=== PATIENT | female | born 1970 | race Caucasian/White ===

== ENCOUNTER → 2017-09-01 | Outpatient (CLI) | payer BC ==
--- NOTE | 2017-09-02 10:40 | MM ---
Reason for exam: screening (asymptomatic). Last mammogram was performed 2 years and 5 months ago. History: Took hormonal contraceptives for 13 years. Physical Findings: A clinical breast exam by your physician is recommended on an annual basis and results should be correlated with mammographic findings. MG Screening Mammo w CAD Bilateral CC and MLO view(s) were taken. Prior study comparison: April 02, 2015, bilateral MG screening mammo w CAD. September 14, 2013, left diagnostic mammogram w/CAD. The breast tissue is heterogeneously dense. This may lower the sensitivity of mammography. Finding: There are typically benign round calcifications in both breasts. There is no discrete abnormality. ASSESSMENT: Benign, BI-RAD 2 RECOMMENDATION: Routine screening mammogram of both breasts in 1 year.
== END | disposition home or self-care (01) ==
LOC: RADMAMWWP 13:47
PROVIDERS: ATTEND Obstetrics & Gynecology
DX: Z12.31 Encounter for screening mammogram for malignant neoplasm of breast (principal)
CPT/HCPCS: 77067

== ENCOUNTER → 2019-01-17 | Outpatient (CLI) | payer BC ==
--- NOTE | 2019-01-17 17:05 | CT ---
EXAMINATION TYPE: CT abdomen pelvis w con DATE OF EXAM: 01/17/2019 COMPARISON: Abdomen 01/15/2019 from outside institution HISTORY: flank pain, fever, nausea, hematuria CT DLP: 1378 mGycm Automated exposure control for dose reduction was used. TECHNIQUE: Helical acquisition of images from the lung bases through the pelvis have been completed. CONTRAST: Performed with Oral Contrast and with IV Contrast, patient injected with 100 mL of Isovue 300. FINDINGS: Small umbilical hernia contains fat. LUNG BASES: No significant abnormality is appreciated. AORTA: No significant abnormality is appreciated. LIVER/GB: No significant abnormality is appreciated. PANCREAS: No significant abnormality is seen. SPLEEN: No significant abnormality is seen. ADRENALS: No significant abnormality is seen. KIDNEYS: There is some perinephric stranding on the left, correlate for possible urinary tract infect ion, periureteral soft tissue is also present. REPRODUCTIVE ORGANS: Possible fallopian tubal ligation clip present in the left hemipelvis. Metallic densities noted. Right-sided clip is not seen however. Correlating plain film question second metalli c density superimposed over the pelvis which is not seen on CT, correlate for jewelry overlying the p atient BOWEL: There is some areas of bowel wall thickening, difficult to exclude enteritis, colitis. Normal appendix. FREE AIR: No Free Air visible. ASCITES: None visible. PELVIC ADENOPATHY: None visualized. RETROPERITONEAL ADENOPATHY: No Retroperitoneal Adenopathy visible. URINARY BLADDER: No significant abnormality is seen. OSSEOUS STRUCTURES: No significant abnormality is seen. IMPRESSION: CORRELATE FOR PYELONEPHRITIS. Only one tubal ligation clip is identified. Discordance between CT and plain film as described, correlate. Correlate for possible enteritis, colitis.
== END | disposition home or self-care (01) ==
LOC: RADCTMAIN 13:34
PROVIDERS: ATTEND Family Medicine
DX: R10.9 Unspecified abdominal pain (principal); R31.9 Hematuria, unspecified; Z88.8 Allergy status to other drugs, medicaments and biological substances
CPT/HCPCS: 74177; Q9967

== ENCOUNTER → 2019-09-18 | Outpatient (CLI) | payer BC ==
--- NOTE | 2019-09-19 10:17 | MM ---
Reason for exam: screening (asymptomatic). Last mammogram was performed 2 years and 1 month ago. History: Took hormonal contraceptives for 13 years. Physical Findings: A clinical breast exam by your physician is recommended on an annual basis and results should be correlated with mammographic findings. MG Screening Mammo w CAD Bilateral CC and MLO view(s) were taken. Prior study comparison: September 01, 2017, bilateral MG screening mammo w CAD. April 02, 2015, bilateral MG screening mammo w CAD. The breast tissue is heterogeneously dense. This may lower the sensitivity of mammography. Finding: There are indeterminate calcifications in the outer quadrant of the right breast on CC view 3 cm from the nipple. New finding since September 01, 2017 and April 02, 2015. ASSESSMENT: Incomplete: need additional imaging evaluation, BI-RAD 0 RECOMMENDATION: Special view mammogram of the right breast. If lesion persists on supplemental views, image directed ultrasound is recommended. [facility] will attempt to contact patient to return for supplemental views and ultrasound if indicated.
== END | disposition home or self-care (01) ==
LOC: RADMAMWWP 11:44
PROVIDERS: ATTEND Obstetrics & Gynecology
DX: Z12.31 Encounter for screening mammogram for malignant neoplasm of breast (principal)
CPT/HCPCS: 77067

== ENCOUNTER → 2019-09-27 | Outpatient (CLI) | payer BC ==
--- NOTE | 2019-09-28 08:39 | MM ---
Reason for exam: additional evaluation requested from abnormal screening. Last mammogram was performed less than 1 month ago. History: Took hormonal contraceptives for 13 years. Physical Findings: Nurse Summary: 0.5cm nodule in the right breast at 10 o'clock (nurse pinky). MG 3D Work Up W/Cad RT Spot compression CC and LM view(s) were taken of the right breast. Prior study comparison: September 18, 2019, bilateral MG screening mammo w CAD. September 01, 2017, bilateral MG screening mammo w CAD. April 02, 2015, bilateral MG screening mammo w CAD. The breast tissue is heterogeneously dense. This may lower the sensitivity of mammography. Multiple areas of grouped and regional calcifications similar to 2018. The lateral anterior asymmetric density does not persist but there is a nurse palpated area near the same region. These results were verbally communicated with the patient and result sheet given to the patient on 09/27/19. ASSESSMENT: Incomplete: need additional imaging evaluation, BI-RAD 0 RECOMMENDATION: Ultrasound of the right breast.
--- NOTE | 2019-09-28 08:42 | USB ---
Reason for exam: additional evaluation requested from abnormal screening. History: Took hormonal contraceptives for 13 years. US Breast Workup RT Right complete breast ultrasound includes all four quadrants, the retroareolar region and axilla. Finding demonstrates a 8 x 4 x 9mm oval, cystic lesion at 1 o'clock, second dominant cyst and a 19 x 7 x 15mm oval, cystic lesion at 11 o'clock, this is the largest cyst and corresponds to the palpable abnormality. Multiple cysts are present throughout. 1 year follow up mammogram can be performed. These results were verbally communicated with the patient and result sheet given to the patient on 09/27/19. ASSESSMENT: Probably benign, BI-RAD 3 RECOMMENDATION: Follow-up diagnostic mammogram of both breasts in 1 year.
== END | disposition home or self-care (01) ==
LOC: RADMAMWWP 14:13
PROVIDERS: ATTEND Obstetrics & Gynecology
DX: R92.8 Other abnormal and inconclusive findings on diagnostic imaging of breast (principal)
CPT/HCPCS: 77061; 77065

== ENCOUNTER → 2020-10-29 | Outpatient (CLI) | payer BC ==
--- NOTE | 2020-10-29 10:23 | MM ---
Reason for exam: additional evaluation requested from prior study. Last mammogram was performed 1 year and 1 month ago. History: Benign excisional biopsy of the left breast, 2014. Took hormonal contraceptives for 13 years. Physical Findings: Nurse did not find any significant physical abnormalities on exam. MG Diagnostic Mammo w CAD ETHEL Bilateral CC and MLO view(s) were taken. Prior study comparison: September 27, 2019, right breast MG 3d work up w/cad RT. September 18, 2019, bilateral MG screening mammo w CAD. The breast tissue is heterogeneously dense. This may lower the sensitivity of mammography. There are stable benign appearing round calcifications bilaterally. There are regional calcifications right upper outer quadrant, stable from prior. Focal asymmetry right upper MLO, stable. No significant new findings when compared with previous films. These results were verbally communicated with the patient and result sheet given to the patient on 10/29/20. ASSESSMENT: Benign, BI-RAD 2 RECOMMENDATION: Routine screening mammogram of both breasts in 1 year.
== END | disposition home or self-care (01) ==
LOC: RADMAMWWP 08:15
PROVIDERS: ATTEND Family Medicine
DX: R92.8 Other abnormal and inconclusive findings on diagnostic imaging of breast (principal)
CPT/HCPCS: 77066

== ENCOUNTER → 2022-02-18 | Outpatient (CLI) | payer OTHER ==
--- NOTE | 2022-02-19 11:06 | MM ---
Reason for Exam: Screening (asymptomatic). Last mammogram was performed 1 year(s) and 4 month(s) ago. Patient History: Menarche at age 11. First Full-Term at age 22. Postmenopausal. Patient used Hormonal Contraceptives for 13 years. 2015, Benign Excisional Biopsy on the left side. Risk Values: Nessa 5 year model risk: 1.2%. NCI Lifetime model risk: 9.0%. Prior Study Comparison: 09/18/2019 Bilateral Screening Mammogram, [facility]. 09/27/2019 Right Diagnostic Mammogram, [facility]. 10/29/2020 Bilateral Diagnostic Mammogram, [facility]. Tissue Density: The breast tissue is heterogeneously dense. This may lower the sensitivity of mammography. Findings: Analyzed By CAD. Grouped calcifications seen within the right breast upper inner quadrant are appreciated. Overall Assessment: Incomplete: need additional imaging evaluation, BI-RAD 0 Management: Diagnostic Mammogram of the right breast. A clinical breast exam by your physician is recommended on an annual basis and results should be correlated with mammographic findings. Electronically signed and approved by: Roque Disla DO
== END | disposition home or self-care (01) ==
LOC: RADMAMWWP 15:16
PROVIDERS: ATTEND Obstetrics & Gynecology
DX: Z12.31 Encounter for screening mammogram for malignant neoplasm of breast (principal); R92.1 Mammographic calcification found on diagnostic imaging of breast; Z78.0 Asymptomatic menopausal state
CPT/HCPCS: 77067

== ENCOUNTER → 2022-02-22 | Outpatient (CLI) | payer OTHER ==
--- NOTE | 2022-02-22 13:52 | MM ---
Reason for Exam: Additional evaluation requested from abnormal screening. Last screening mammogram was performed less than 1 month ago. Patient History: Menarche at age 11. First Full-Term at age 22. Postmenopausal. Patient used Hormonal Contraceptives for 13 years. 2014, Benign Excisional Biopsy on the left side. Risk Values: Nessa 5 year model risk: 1.2%. NCI Lifetime model risk: 9.0%. Prior Study Comparison: 04/02/2015 Bilateral Screening Mammogram, [facility]. 09/01/2017 Bilateral Screening Mammogram, [facility]. 09/18/2019 Bilateral Screening Mammogram, [facility]. 09/27/2019 Right Diagnostic Mammogram, [facility]. 10/29/2020 Bilateral Diagnostic Mammogram, [facility]. 02/18/2022 Bilateral MG screening mammo w CAD, [facility]. Tissue Density: Right: The breast tissue is heterogeneously dense. This may lower the sensitivity of mammography. Findings: Analyzed By CAD. Scattered calcifications throughout both the right breast unchanged from prior study from 2019. No suspicious clusters or increasing clusters seen. Overall Assessment: Benign, BI-RAD 2 Management: Screening Mammogram of both breasts in 1 year. A clinical breast exam by your physician is recommended on an annual basis and results should be correlated with mammographic findings. This exam should not preclude additional follow-up of suspicious palpable abnormalities. Results were given to the patient verbally at the time of exam. Electronically signed and approved by: Ras Cifuentes M.D. Radiologis
== END | disposition home or self-care (01) ==
LOC: RADMAMWWP 10:21
PROVIDERS: ATTEND Obstetrics & Gynecology
DX: R92.8 Other abnormal and inconclusive findings on diagnostic imaging of breast (principal); R92.1 Mammographic calcification found on diagnostic imaging of breast; Z78.0 Asymptomatic menopausal state
CPT/HCPCS: 77061; 77065